=== PATIENT | female | born 1985 | race Caucasian/White ===

== ENCOUNTER 2018-08-27 15:10 | Emergency (ER) | payer MEDICARE, MEDICAID ==
[~2018-08-27] VITALS: Ht 172.7 cm; Wt 72.6 kg
[~2018-08-27 15:10] MED LIST: ACETAMINOPHEN-1 EAC1 PO; AMBIEN; AZO95 MG PO; BACTRIM DS TAB1 EACH PO; CIPROFLOXACIN500 M1 PO; CLONAZEPAM 0.50.5 M1 PO; CLONAZEPAM 1 MG1 M1 PO; DEPAKOTE; DEPAKOTE ER500 MG PO; DOXYCYCLINE 10100 MG PO; FLUOXETINE HCL40 MG PO; HYDROCODONE-AP1 EAC6 PO; INDOMETHACIN 5050 MG PO; KLONOPIN; LAMICTAL; LAMICTAL100 MG PO; MACROBID 100 M100 M2 PO; MEDROLDOSEPACK PO; MIRENA1 EACH; NAPROSYN375 MG PO; NAPROSYN500 MG PO; NEURONTIN 300300 M1; NORCO 5-325 TA1 EAC1 PO; PHENAZOPYRIDIN200 M2 PO; PHENERGAN 25 MG25 M1 PO; PROTONIX40 M1 PO; SEROQUEL 25 MG25 M1 PO; ZYPREXA5 MG PO
[2018-08-27] MEDS ORDERED: LITHIUM CARBON600 MG PO (15:24)
[2018-08-27] MEDS ORDERED: AMBIEN 5 MG TABL5 M1 PO (15:24)
[2018-08-27] MEDS ORDERED: INVEGA SUS78 MG/0.5 IM (15:25)
[2018-08-27 15:53] LABS: ABSOLUTE BASOPHILS 0.1 thou/uL (0.0-0.2); ABSOLUTE EOSINOPHILS 0.3 thou/uL (0.0-0.7); ABSOLUTE MONOCYTES 0.6 thou/uL (0.0-1.2); ABSOLUTE NEUTROPHILS 9.9 thou/uL (1.6-8.1); BASOPHILS 0.4 %; EOSINOPHILS 2.8 %; HEMATOCRIT 40.7 % (37.0-47.0); HEMOGLOBIN 14.1 gm/dL (12.0-15.0); LYMPHOCYTES 8.5 %; MCH 32.5 pg (26.0-34.0); MCHC 34.6 g/dL (28.0-37.0); MCV 94.1 fL (80.0-100.0); MONOCYTES 5.4 %; MPV 7.7 fl. (7.2-11.1); NUCLEATED RBCS 0 /100WBC; PLATELET COUNT* 202 thou/uL (150-400); POLYS 82.9 %; RBC 4.33 mil/uL (4.20-5.00); RDW-CV 13.6 % (10.5-14.5)
[2018-08-27 16:01] LABS: CALCIUM 8.6 mg/dL (8.5-10.1); CREATININE 0.8 mg/dL (0.6-1.3); POTASSIUM 3.7 mmol/L (3.5-5.1)
[2018-08-27 16:05] LABS: ALBUMIN 3.6 g/dL (3.4-5.0); TOTAL BILIRUBIN 0.4 mg/dL (<0.1-1.0); TOTAL PROTEIN 7.1 g/dL (6.4-8.2)
[2018-08-27 16:23] LABS: URINE BLOOD NEGATIVE (Negative); URINE CLARITY SL CLOUDY; URINE COLOR DARK YELLOW; URINE GLUCOSE-RANDOM NEGATIVE (Negative); URINE KETONES TRACE (Negative); URINE LEUKOCYTES-REFLEX NEGATIVE (Negative); URINE NITRITE-REFLEX NEGATIVE (Negative); URINE PROTEIN NEGATIVE (Negative); URINE SPECIFIC GRAVITY 1.015 (1.005-1.030)
[2018-08-27 16:24] LABS: URINE BILIRUBIN 1+ (Negative)
[2018-08-27 16:33] LABS: SQUAMOUS >10 Many /LPF (0-3)
[2018-08-27 16:35] LABS: BACTERIA-REFLEX 1-9 Few /HPF (None Seen); URINE RBC 0-2 Rare /HPF (0-2); URINE WBC-REFLEX 6-15 Few /HPF (0-5)
[2018-08-27 16:36] LABS: CASTS None Seen /LPF (None Seen); CRYSTALS None Seen /LPF (None Seen); MUCUS >6 Heavy strn/LPF (None Seen)
[2018-08-27] MEDS ORDERED: ACETAMINOPHEN-1 EAC1 PO (17:47)
[2018-08-27] MEDS ORDERED: CEFDINIR300 MG PO (17:47)
[2018-08-27] MEDS ORDERED: PYRIDIUM100 M1 PO (17:47)
[2018-08-27] MEDS ORDERED: ONDANSETRON HCL4 M2 PO (17:48)
[2018-08-27 18:15] VITALS: BP 101/69
== END 2018-08-27 18:15 | disposition home or self-care (01) ==
LOC: M.ERS 15:10
PROVIDERS: Nurse Practitioner Family
DX: N39.0 Urinary tract infection, site not specified (principal); D72.829 Elevated white blood cell count, unspecified; F31.9 Bipolar disorder, unspecified; G89.29 Other chronic pain; M54.9 Dorsalgia, unspecified; Z87.440 Personal history of urinary (tract) infections